=== PATIENT | female | born 1960 ===

== ENCOUNTER → 2024-04-02 08:01 | Outpatient (CLI) | payer OTHER ==
[~2024-04-02] VITALS: Ht 157.5 cm; Wt 85.7 kg
[~2024-04-02 08:01] MED LIST: CRESTOR40 MG PO; GLIMEPIRIDE4 MG; JENTADUETO XR1 EAC1 PO; PRILOSEC OTC20 MG PO; TOPROL XL; ZESTORETIC 10-1 EACH PO
[2024-04-02 09:07] LABS: PH,URINE 5.5 (5.0-8.0); URINE APPEARANCE Clear; URINE BILIRRUBIN Negative (NEGATIVE); URINE BLOOD Negative; URINE COLOR Yellow; URINE GLUCOSE Negative (NEGATIVE); URINE KETONE Trace (NEGATIVE); URINE LEUKOCYTE Negative; URINE NITRATE Negative; URINE PROTEIN Negative (NEGATIVE); URINE UROBILINOGEN 0.2 E.U./dl
[2024-04-02 09:12] VITALS: BP 168/85
[2024-04-02 09:12] LABS: HEMATOCRIT 41.1 % (36.0-45.00); HEMOGLOBIN 14.2 g/dL (12.0-15.00); MEAN CORPUSCULAR HEMOGLOBIN 30.1 pg (27.00-32.0); MEAN CORPUSCULAR HGB CONC 34.6 g/dl (32.0-36.0); PLATELET COUNT 223 K/uL (150-450); RED BLOOD COUNT 4.72 M/uL (4.00-6.00); RED CELL DISTRIBUTION WIDTH 14.2 % (11.5-14.5)
[2024-04-02 09:13] LABS: URINE BACTERIA 1136.8 uL (0.0-1933); URINE EPITHELIAL CELLS 14.8 uL (0.0-38.8); URINE RBC 9.1 uL (0.0-20.8)
[2024-04-02 09:27] LABS: INR 0.94; PARTIAL THROMBOPLASTIN TIME 26.8 SECONDS (22.0-34.0); PROTHROMBIN TIME 10.3 SECONDS (9.0-11.5)
[2024-04-02 10:30] LABS: ALBUMIN 4.2 gm/dL (3.4-5.0); BILIRUBIN TOTAL 0.53 mg/dL (0.3-1.2); CALCIUM 9.7 mg/dL (8.5-10.1); CREATININE SERUM 0.71 mg/dL (0.55-1.02); GFR 82.62; GLOBULINA 3.9 G/DL (2.4-3.5); POTASSIUM 4.01 mEq/L (3.5-5.1); TOTAL PROTEIN 8.1 gm/dL (6.4-8.2)
== END | disposition home or self-care (01) ==
LOC: ADM 07:45 → RAD 08:01 → EDSTATUS 04-07 07:45 → CIR.AMB 04-07 07:45
PROVIDERS: ATTEND Orthopaedic Surgery Sports Medicine
DX: M23.51 Chronic instability of knee, right knee (principal); M67.51 Plica syndrome, right knee; M22.41 Chondromalacia patellae, right knee; Z20.822 Contact with and (suspected) exposure to COVID-19; I10 Essential (primary) hypertension; Z01.818 Encounter for other preprocedural examination

== ENCOUNTER 2024-07-21 05:15 | Day surgery (SDC) | payer OTHER ==
[2024-07-11 08:11] VITALS: BP 158/88
[2024-07-11 08:48] LABS: PH,URINE 6.5 (5.0-8.0); URINE APPEARANCE Clear; URINE BILIRRUBIN Negative (NEGATIVE); URINE BLOOD Negative; URINE COLOR Yellow; URINE GLUCOSE Negative (NEGATIVE); URINE KETONE Negative (NEGATIVE); URINE LEUKOCYTE Negative; URINE NITRATE Negative; URINE PROTEIN Negative (NEGATIVE); URINE UROBILINOGEN 0.2 E.U./dl
[2024-07-11 08:53] LABS: URINE EPITHELIAL CELLS 46.6 uL (0.0-38.8); URINE RBC 12.6 uL (0.0-20.8); URINE WBC 4.7 uL (0.0-23.2)
[2024-07-11 08:55] LABS: HEMATOCRIT 38.4 % (36.0-45.00); MEAN CELL VOLUME 87.1 fL (80.00-100.00); MEAN CORPUSCULAR HEMOGLOBIN 29.5 pg (27.00-32.0); MEAN CORPUSCULAR HGB CONC 33.8 g/dl (32.0-36.0); PLATELET COUNT 214 K/uL (150-450); RED BLOOD COUNT 4.41 M/uL (4.00-6.00)
[2024-07-11 09:14] LABS: INR 1.01; PARTIAL THROMBOPLASTIN TIME 27.2 SECONDS (22.0-34.0)
[2024-07-11 09:27] LABS: URINE CAST 0.73 uL (0.0-1.40)
[2024-07-11 09:45] LABS: BILIRUBIN TOTAL 0.6 mg/dL (0.3-1.2); CALCIUM 9.6 mg/dL (8.5-10.1); CREATININE SERUM 0.73 mg/dL (0.55-1.02); GFR 80.01; GLOBULINA 3.6 G/DL (2.4-3.5); POTASSIUM 4.18 mEq/L (3.5-5.1); TOTAL PROTEIN 7.6 gm/dL (6.4-8.2)
[~2024-07-21] VITALS: Ht 157.5 cm; Wt 88.9 kg
[2024-07-21] MEDS ORDERED: BUPIVACAINE HCL/PF 0.25% 30ML VIAL InF ONE (09:30)
[2024-07-21] MEDS ORDERED: METHYLPREDNISOLONE ACETATE 80 MG/ML VIAL IU ONE (09:30)
[2024-07-21] MEDS ORDERED: EPINEPHRINE HCL/PF 1 MG/ML AMPUL IR ONE (09:30)
[2024-07-21] MEDS ORDERED: CEFOXITIN SODIUM 2,000 MG VIAL IV ONE (09:30)
[2024-07-21] MEDS ORDERED: MEPERIDINE HCL/PF 25 MG/ML VIAL IM PRN (10:15)
[2024-07-21] MEDS ORDERED: CEFAZOLIN SODIUM 1,000 MG VIAL IV ONE (10:15)
[2024-07-21] MEDS ORDERED: PROMETHAZINE HCL 25 MG/ML AMPUL IM PRN (10:15)
[2024-07-21] MEDS ORDERED: TRAM1TAB98 PO (10:16)
[2024-07-21] MEDS ORDERED: DUI500 PO (10:16)
[2024-07-21] MEDS ORDERED: CEFADROXIL 500 MG CAPSULE PO SCH (21:00)
== END 2024-07-21 14:45 | disposition home or self-care (01) ==
LOC: CIR.AMB 05:15
PROVIDERS: ATTEND Orthopaedic Surgery Sports Medicine
DX: M23.321 Other meniscus derangements, posterior horn of medial meniscus, right knee (principal); M23.51 Chronic instability of knee, right knee; M22.41 Chondromalacia patellae, right knee; M67.51 Plica syndrome, right knee; E11.9 Type 2 diabetes mellitus without complications; I10 Essential (primary) hypertension